=== PATIENT | male | born 1950 | race Caucasian/White ===

== ENCOUNTER → 2016-12-28 | Outpatient (CLI) | payer BC ==
[~2016-12-28] MED LIST: CENTRUM SILVER1 EAC1 PO; GLUCOSAMINE CH1 EAC7 PO; OCUFLOX 0.100 DROP/5 RIGHT EYE
== END | disposition home or self-care (01) ==
LOC: CDC 08:13
DX: M51.26 Other intervertebral disc displacement, lumbar region (principal); M54.16 Radiculopathy, lumbar region; M54.5 Low back pain; R94.31 Abnormal electrocardiogram [ECG] [EKG]
CPT/HCPCS: 93000